=== PATIENT | male | born 1980 | race Caucasian/White ===

== ENCOUNTER 2017-10-10 14:26 | Inpatient (IN) | payer OTHER ==
[~2017-10-10] VITALS: Ht 177.8 cm; Wt 81.6 kg
[2017-10-10 15:00] VITALS: BP 124/68
--- NOTE | 2017-10-10 15:00 | NUR ---
Pre-admission Pre-admission assessment performed in the intake department of [facility]. Pt is oriented x4 but drowsy and ambulatory with a steady gait. He appears intoxicated and answers questions appropriately with slurred speech. His eyes are red and he reports that he did not sleep last night. Vital signs: B/P 124/68, HR 78, RR 16, O2 sat 98%, T 98.1, pain 0/10. He reports that had 2 years and 7 months sober but relapsed 3 months ago after "major oral surgery". He has been using Xanax, Valium, [place], Morphine ER, Roxycodone, cocaine, and heroin. Pt was originally prescribed Valium and Clinton after oral surgery. Soon after he began using Xanax, Morphine ER, and Roxycodone. For the past 2 nights he used Heroin and Cocaine. Pt is stable and admission is to continue on the [facility].
[2017-10-10] MEDS ORDERED: DICYCLOMINE HCL 20 MG TABLET PO PRN (15:45)
[2017-10-10] MEDS ORDERED: DIAZEPAM 5 MG TABLET PO PRN (15:45)
[2017-10-10] MEDS ORDERED: THIAMINE HCL 200 MG/2 ML VIAL IM ONE (15:45)
[2017-10-10] MEDS ORDERED: ACETAMINOPHEN 325 MG TABLET PO PRN (15:45)
[2017-10-10] MEDS ORDERED: DIAZEPAM 10 MG TABLET PO PRN ×2 (15:45)
[2017-10-10] MEDS ORDERED: LORAZEPAM 2 MG/1 ML VIAL IM PRN (15:45)
[2017-10-10] MEDS ORDERED: ONDANSETRON ODT 4 MG TAB.RAPDIS SL PRN (15:45)
[2017-10-10] MEDS ORDERED: MAGNESIUM HYDROXIDE 30 ML LIQUID UDC PO PRN (15:45)
[2017-10-10] MEDS ORDERED: MAG HYDROX/AL HYDROX/SIMETH 30 ML LIQUID UDC PO PRN (15:45)
[2017-10-10] MEDS ORDERED: CLONIDINE HCL 0.1 MG TABLET PO PRN (15:45)
[2017-10-10] MEDS ORDERED: ONDANSETRON 4 MG/2 ML VIAL IM PRN (15:45)
[2017-10-10] MEDS ORDERED: MIRALAX 17 GM POWD.PACK PO PRN (15:45)
[2017-10-10] MEDS ORDERED: HYDROXYZINE PAMOATE 25 MG CAPSULE PO PRN (15:45)
[2017-10-10] MEDS ORDERED: BUPRENORPHINE HCL 2 MG TAB.SUBL SL PRN (15:45)
[2017-10-10] MEDS ORDERED: LOPERAMIDE HCL 2 MG CAPSULE PO PRN ×2 (15:45)
[2017-10-10 16:00] VITALS: BP 99/60
[2017-10-10 16:38] LABS: *AMPHETAMINE, URINE NEGATIVE (NEGATIVE); *BARBITURATE, URINE NEGATIVE (NEGATIVE); *CANNABINOID, URINE NEGATIVE (NEGATIVE); *COCCAINE, URINE POSITIVE (NEGATIVE); *OPIATE, URINE POSITIVE (NEGATIVE); *PHENCYCLIDINE SCREEN,URINE NEGATIVE (NEGATIVE)
[2017-10-10 17:06] LABS: BASOPHILS % (AUTO) 0.2 % (0.0-2.0); EOSINOPHILS % (AUTO) 0.2 % (0.0-7.0); HEMATOCRIT 36.7 % (36.7-47.1); HEMOGLOBIN 12.4 g/dL (12.5-16.3); LYMPHOCYTES # (AUTO) 0.8 K/uL (20.0-40.0); LYMPHOCYTES % (AUTO) 8.6 % (20.5-51.5); MEAN CORPUSCULAR HEMOGLOBIN 31.4 uug (23.8-33.4); MEAN CORPUSCULAR HGB CONC 34 g/dL (32.5-36.3); MEAN CORPUSCULAR VOLUME 92.4 fL (73.0-96.2); MONOCYTES # (AUTO) 0.5 K/uL (2.0-10.0); MONOCYTES % (AUTO) 5.7 % (0.0-11.0); NEUTROPHILS # (AUTO) 7.7 K/uL (1.8-8.9); NEUTROPHILS % (AUTO) 85.3 % (38.5-71.5); PLATELET COUNT (AUTO) 160 K/uL (152-348); RED BLOOD CELL COUNT(AUTO) 3.97 MIL/uL (4.06-5.63); WHITE BLOOD COUNT (AUTO) 9.1 K/uL (3.6-10.2)
[2017-10-10 17:07] LABS: ETHANOL < 3 MG/DL (0-0)
[2017-10-10 17:10] LABS: ALANINE AMINOTRANSFERASE 58 U/L (16-63); ALKALINE PHOSPHATASE 54 U/L (50-136); ASPARTATE AMINOTRANSFERASE 20 U/L (15-37); BILIRUBIN,TOTAL 0.5 mg/dL (0.2-1.0); CARBON DIOXIDE 30 mmol/L (21-32); CHLORIDE 105 mmol/L (98-107); CREATININE 0.9 mg/dL (0.6-1.3); GLUCOSE 105 mg/dL (74-106); POTASSIUM 4.1 mmol/L (3.5-5.1); TOTAL PROTEIN, SERUM 6.6 g/dL (6.4-8.2); UREA NITROGEN, BLOOD 23 mg/dL (7-18)
--- NOTE | 2017-10-10 17:50 | NUR ---
Admission note Pt is a 37 year old male arrived to [facility] at 1625 to be admitted for medically supervised withdrawals from Opiates and Benzos, pt also used cocaine. Pt appeared to be moderately intoxicated from Xanax, stated that he took 3mg this morning. Pt stated that he has not slept for the past day and a half he has been using Heroin 2 grams for the past 2 nights and cocaine for the past 2 nights. Pt is able to communicate effectively with moderate difficulties, pt was nodding and had difficulty keeping his eyes open during the assessment. He was able to answer all the questions effectively. Pt stated that he has experienced a seizure once due to Xanax withdrawal and he also states that he has no PMH but does have issues with his teeth and had to do surgery on his teeth which is how he relapsed. Pt states that he smokes a pack of cigarettes daily. CIWA and COWS were deferred due to pt being moderately intoxicated during the assessment and not experiencing any symptoms. Patient appears calm but noted to be worried and depressed. Pt states that he lives with his girlfriend in an apartment, pt currently unemployed he is 180lb and 510. Pt is A&Ox4 Vitals are as followed BP B/P 124/68, HR 78, RR 16, O2 sat 98%, T 98.1, pain 0/10. Pt states his withdrawal symptoms include feeling depressed, having anxiety, constantly nauseated and at times vomiting, tremors, chills, sweats emotional volatility, and [place]. Pt stated that he attended other facilities in the past including [facility] which he attended from April 16 2012 to August 03 2013 and [facility] from April/2010 to 2010. Substance use are as followed: Pt stated that he has been to multiple treatment centers in the past over 30 of them but he only remembers the names of the last 2 which was [facility] which he attended for 7 months but does not recall the [facility] and [facility] where he was on a maintenance and does not recall the dates on those at the moment pt states that he has not slept for the past few days due to cocaine and heroin and is not able to think straight at the moment. 1. Xanax- Pt refused to answer at what age he started using Xanax stating thats none of your concern For the past 3 months he has been taking around 8-10mg by mouth. He last used it today in the AM stating he took 3mg. 2. Heroin- Pt refused to answer at what age he started using heroin stating thats none of your concern he has been using 2grams IV for the past 2 days, stating that he last shot up 2 grams last night. 3. Cocaine- Pt refused to answer at what age he started using Cocaine stating thats none of your concern he has been using 1gram snorting it for the past 2 days, stating that he last snorted about 2 grams last night. 4. Roxicodone/Morphine- pt stated that he has been taking Roxicodone 40-50mg a day for the past 3 months last used 50mg 3 days ago.He stated that he took morphine ER 60-75mg a day for the past 3 months and he last took 60mg 3 days ago 5. [place]/Valium- Pt stated that this relapse occurred due to these medications that he got prescribed by his dentist after a major teeth surgery, he was prescribed a month worth of Valium 5mg and [place] 5/325mg. he stated that he last took the meds last week and it created withdrawals which got his to taking the rest of the drugs. When asked why he uses drugs he stated "it takes away the pain and anger and the stress that I have to deal with in my life" when asked why he want to get sober he stated "Because I want to be better and I want to fix my relationship with my girlfriend and my parents". Patients longest sobriety lasted 2 years and a 7 months from October 2014 to around July 2017. When asked how many times he tried to get sober? pt stated "I have been in treatment centers all my life ever since I was like 17/18 years old, I have been trying all this time and I keep failing but I want to make this one different". What will be different this time? "I will stick to it, no more prescriptions no matter what surgery I get, Im done with this because these doctors just dont care and prescribe stuff that is addicting, but Im done man no more I will take control of my life". Educated patient about plan of care including detox, group therapy, individual therapy, and discharge planning. Encouraged patient to be open and honest and verbalized any needs. Encouraged patient to drink plenty of water to help facilitate detox process. Will continue to monitor
--- NOTE | 2017-10-10 19:27 | NUR ---
End Of Shift Report given to weight shifter nurse. Pt admitted today for Opiate and Benzo withdrawals, assessment completed, all paperwork signed, information provided to MD, All admitting orders placed. Pt ate his meals, laid in bed and watched TV, Pts CIWA and COWS was differed due to him being intoxicated, vitals WNL, I&O inputted. Pt encouraged to drink plenty of fluids in order to help the detox process. Pt will start his taper tomorrow in the AM. No PRN medications administered, all safety measures in place bed in lowest position, call light within reach, endorsement given to weight shifter nurse.
--- NOTE | 2017-10-10 19:28 | NUR ---
Start of shift note Received report from day shift nurse. Pt is a 37 yo male, A+Ox4, presenting to [facility] for Benzo/Opiate/Cocaine withdrawal. Pt noted to be anxious, agitated, and restless. Pt has HX of Seizure which will be monitored during shift. Pt is on 5 day Valium and 5 day Subutex tapers to start tomorrow. Respirations even and unlabored. Will continue to monitor.
[2017-10-10 20:09] VITALS: BP 133/79
--- NOTE | 2017-10-10 20:09 | NUR ---
COWS and CIWA Assessment COWS: 9 and CIWA: 8. Pt noted with pulse 64, chills, sweat, restlessness, stuffy nose, stomach cramps, yawning, anxiety, and agitation. Respirations even and unlabored. Will continue to monitor.
[2017-10-11 00:20] VITALS: BP 125/79
--- NOTE | 2017-10-11 00:20 | NUR ---
COWS and CIWA Assessment COWS: 8 and CIWA: 10. Pt noted with pulse 67, sweat, chills, anxiety, agitation, yawning, stomach cramps, stuffy nose, and restlessness. Respirations even and unlabored. Will continue to monitor.
--- NOTE | 2017-10-11 00:28 | NUR ---
PRN Valium 10mg Pt c/o anxiety and noted with CIWA: 10. PRN [id number] given and tolerated well. Will reassess within 1 HR. Will continue to monitor.
--- NOTE | 2017-10-11 01:20 | NUR ---
PRN Valium 10mg Reassessment Medication effective. Pt expresses reduction of anxiety. CIWA: 8. No s/s of ASE noted at this time. Respirations even and unlabored. Will continue to monitor. Addendum: 10/11/17 at 0334 by ARIANNA SHELTON LVN Pt noted with sweat on brow, agitation, and anxiety.
--- NOTE | 2017-10-11 04:47 | NUR ---
V/S refused, COWS and CIWA assessment deferred for sleep. Respirations even and unlabored. Will continue to monitor.
--- NOTE | 2017-10-11 07:00 | NUR ---
End of shift note Pt was continuously noted with anxiety, agitation, restlessness, and sweat on brow. Pt remained in room for majority of shift except to get food from kitchen, to go smoke on smoking patio, and to interact with other patients in recreational room. Pt remained cooperative and compliant with all aspects of treatment. Pt was given PRN Valium 10mg @0028. Pt is on 5 day Valium and 5 day Subutex tapers to start today. Pt slept for a total of 5 HRS. Last COWS: 8 @0020 and Last CIWA: 8 @0120. Respirations even and unlabored. Will endorse to day shift nurse.
--- NOTE | 2017-10-11 07:38 | NUR ---
START OF SHIFT Pt is a 37 yr old male, admitted on 10/10/17 for Benzo/Opiate withdrawal and is to start on 5 day Valium and 5 day Subutex taper as ordered. Received report from shift leader. Pt received Valium 10mg PRN during the night for s/s of w/d. Medication was effective. Pt slept for 5 hrs. Last COWS score was 8 and CIWA score was 8. Pt remains in bed sleeping with respirations even and unlabored. Skin is intact, warm and moist to touch. Pt is on fall and seizure precautions. Call light is within reach. Will continue to monitor.
[2017-10-11 08:09] VITALS: BP 130/68
[2017-10-11] MEDS ORDERED: 5 DAY TAPER BUPRENORPHINE -SERENITY PROTOCOL SL PRN (09:00)
[2017-10-11] MEDS ORDERED: TUBERCULIN,PURIF.PROT.DERIV. 5 TU/0.1 ML TEST ID ONE (09:00)
[2017-10-11] MEDS ORDERED: 5 DAY TAPER VALIUM-SERENITY PROTOCOL PO PRN (09:00)
[2017-10-11] MEDS: MULTIVITAMINS,THERAPEUTIC TABLET PO SCH (09:50)
[2017-10-11] MEDS: FOLIC ACID 1 MG TABLET PO SCH (09:50)
[2017-10-11] MEDS: BUPRENORPHINE HCL 2 MG TAB.SUBL SL SCH ×4 (09:51→23:48)
[2017-10-11] MEDS: DIAZEPAM 10 MG TABLET PO SCH ×4 (09:51→23:48)
[2017-10-11] MEDS: THIAMINE HCL 100 MG TABLET PO SCH (09:51)
--- NOTE | 2017-10-11 09:56 | NUR ---
COWS SCORE 13, CIWA SCORE 12 Pt is c/o anxiety, agitation, chills, sweats, joint aches, loss of appetite, and diarrhea x1. Pt is noted yawning more than once and fine tremors are felt on BUE. COWS score was 13 and CIWA score was 12. Pt was given Subutex 4mg SL and Valium 10mg PO as scheduled at 0900. Medication was mayra well. Encouraged increase fluid intake. Will continue to monitor.
[2017-10-11 12:00] VITALS: BP 130/76
--- NOTE | 2017-10-11 12:00 | NUR ---
COWS SCORE 10, CIWA SCORE 10 Pt is c/o anxiety, chills, sweats, loss of appetite, and abdominal cramping Pt is noted yawning more than once. COWS score was 10 and CIWA score was 10. Encouraged increase fluid intake. Will continue to monitor.
[2017-10-11 16:00] VITALS: BP 127/75
--- NOTE | 2017-10-11 19:10 | NUR ---
END OF SHIFT Pt is a 37 yr old male, AA&Ox4. Pt was admitted on 10/10/17 for Benzo/Opiate withdrawal and is on 5 day Subutex and 5 day Valium taper as ordered. Medication mayra well. Pt has been cooperative with medication regimen and plan of care. He was observed attending group therapy during the day. Pt was c/o anxiety, agitation, chills, sweats, abdominal cramping, muscle aching, and diarrhea x1. Pt was observed with stuffy nose and yawning more than once. No PRNs were given during the day. Valium 10mg and Subutex 4mg as scheduled during the day was effective for s/s of w/d. Last COWS score was 8 and CIWA score was 9. Pt was encouraged increase fluid intake. Safety precautions observed. Endorsed to photoengraving proofer nurse to continue with care.
--- NOTE | 2017-10-11 19:11 | NUR ---
Start of shift note Received report from day shift nurse. Pt is a 37 yo male, A+Ox4, presenting to [facility] for medically supervised Benzo and Opiate withdrawal. Pt has also been using Cocaine. Pt noted to be anxious, agitated, and restless. Pt has HX of seizure which will be monitored during shift. Pt is on 5 day Valium, and 5 day Subutex tapers, tolerated well. Respirations even and unlabored. Will continue to monitor.
[2017-10-11 20:22] VITALS: BP 114/77
--- NOTE | 2017-10-11 20:28 | NUR ---
COWS and CIWA Assessment COWS: 9 and CIWA: 9. Pt noted with pulse 61, flushed face, enlarged pupils, restlessness, stuffy nose, stomach cramps, fine tremors, yawning, anxiety, agitation, and sweat on brow. Respirations even and unlabored. Will continue to monitor.
[2017-10-12 00:57] VITALS: BP 129/85
--- NOTE | 2017-10-12 00:57 | NUR ---
COWS and CIWA Assessment COWS: 8 and CIWA: 8. Pt noted with sweat on brow, anxiety, agitation, fine tremors, yawning, stomach cramps, restless, enlarged pupils, flushed face, stuffy nose, and pulse 68. Respirations even and unlabored. Will continue to monitor.
--- NOTE | 2017-10-12 04:06 | NUR ---
V/S refused, COWS and CIWA Assessment deferred for sleep. Respirations even and unlabored. Will continue to monitor.
--- NOTE | 2017-10-12 07:00 | NUR ---
End of shift note Pt was continuously noted with restlessness, anxiety, and agitation. Pt remained in room for majority od shift except to go smoke on smoking patio, to get food from kitchen, and to interact with other patients in recreational room. Pt was not given any PRN medications during shift. Pt is on 5 day Subutex and 5 day Valium tapers, tolerated well. Pt slept for a total of 5 HRS. Last COWS: 8 and Last CIWA: 8 @0000. Respirations even and unlabored. Will endorse to day shift nurse.
--- NOTE | 2017-10-12 07:15 | NUR ---
Start of Shift Notes: Received patient in his room. Awake, alert and verbally responsive. Oriented x 4. Denies S/I or H/I noted. No AV hallucinations. Patient appears disheveled, and unkempt. Room is messy. Garbage noted around the room. Encouraged maintenance of personal hygiene and space. Patient is a 37 year old male admitted for BZO and opiate withdrawal who was placed on a 5-day Valium and 5-day Subutex taper as ordered. No adverse reactions noted. Edcuated patient on his current plan of care for the day and his medication regimen. Encouraged oral fluid intake and encouraged group participation to learn new skills to prevent relapse. Per night report, last COWS 12. No PRNs given. Slept for 5 hours. Will continue to monitor closely.
[2017-10-12 08:00] VITALS: BP 105/76
[2017-10-12] MEDS: FOLIC ACID 1 MG TABLET PO SCH (08:28)
[2017-10-12] MEDS: MULTIVITAMINS,THERAPEUTIC TABLET PO SCH (08:28)
[2017-10-12] MEDS: DIAZEPAM 10 MG TABLET PO SCH ×3 (08:28→22:51)
[2017-10-12] MEDS: THIAMINE HCL 100 MG TABLET PO SCH (08:28)
[2017-10-12] MEDS: BUPRENORPHINE HCL 2 MG TAB.SUBL SL SCH ×3 (08:28→22:51)
--- NOTE | 2017-10-12 08:30 | NUR ---
COWS/CIWA Assessment: COWS 16/CIWA 14, patient presented with facial flushing, sweating on brow/face, intermittent generalized perspiration at rest, pupil dilation, bone/joint aches, myalgia, nasal stuffiness, abdominal cramping, yawning, irritability, anxiety, agitation, gross tremors, and diff. concentrating. Medicated patient as ordered with Valium and Subutex per taper dosing.
[2017-10-12 12:00] VITALS: BP 117/71
--- NOTE | 2017-10-12 12:19 | NUR ---
COWS/CIWA Assessment: COWS 15/CIWA 12, patient is alert and oriented x 4. Denies S/I or H/I. No AV hallucinations noted. Patient continues to present with gross tremors, myalgia, restlessness, malaise, fatigue, intermittent perspiration, and generalized discomfort. Will continue with current taper.
[2017-10-12 13:07] LABS: HEPATITIS B SURFACE AG Negative (Negative)
[2017-10-12 16:00] VITALS: BP 122/68
--- NOTE | 2017-10-12 16:10 | NUR ---
COWS/CIWA Assessment: COWS 12/CIWA 12, patient continues to present with gross tremors, anxiety/agitation, irritability, generalized discomfort, restlessness, chills and hot flashes. Will continue with taper meds as ordered.
--- NOTE | 2017-10-12 19:01 | NUR ---
End of Shift Notes: Patient continues to be on 5-day Subutex and 5-day Valium taper as ordered. No adverse reactions noted. VS monitored closely. No significant abnormalities noted. Withdrawal symptoms were closely monitored. Initial COWS 16, CIWA 14, patient presented with flushed face, intermittent diaphoresis, pupil dilation, bone/joint aches, myalgia, nasal stuffiness, abdominal cramping, yawning, irritability, fatifue, malaise, anxiety, agitation, gorss tremors and difficulty concentrating. Last COWS 12/CIWA 12. Patient verbalizes that Subutex and Valium has been effective in reducing his withdrawal symptoms. He was unable to participate in group and activities due to his withdrawal symptoms. Self isolates at times. Appetite good. All needs met and attended. Will continue to monitor closely.
--- NOTE | 2017-10-12 19:14 | NUR ---
Start of shift note Received report from day shift nurse. Pt is a 37 yo male, A+Ox4, presenting to [facility] for medically supervised withdrawal from Benzos and Opiates. Pt noted to be restless, anxious, and agitated. Pt has HX of seizure and tooth SX which will be monitored during shift. Pt is on 5 day Valium and 5 day Subutex tapers, tolerated well. Respirations even and unlabored. Will continue to monitor.
[2017-10-12 20:11] VITALS: BP 140/79
--- NOTE | 2017-10-12 20:11 | NUR ---
COWS and CIWA Assessment COWS: 10 and CIWA: 10. Pt noted with flushed face, sweat on brow, restlessness, enlarged pupils, stuffy nose, fine tremors, yawning, anxiety, and agitation. Respirations even and unlabored. Will continue to monitor.
[2017-10-12] MEDS: diphenhydrAMINE 50 MG CAPSULE PO PRN (23:00)
[2017-10-12] MEDS: IBUPROFEN 600 MG TABLET PO PRN (23:00)
--- NOTE | 2017-10-12 23:00 | NUR ---
PRN Motrin and Benadryl Pt c/o toothache 08/12 and inability to sleep and requested for PRN Motrin and Benadryl. Medications given and tolerated well. Respirations even and unlabored. Will reassess within 1 HR. Will continue to monitor.
--- NOTE | 2017-10-12 23:49 | NUR ---
PRN Motrin and Benadryl Reassessment Medications effective. Pt expresses reduction in toothache to 2/10 and is resting well in bed. No s/s of ASE noted at this time. Respirations even and unlabored. Will continue to monitor.
--- NOTE | 2017-10-13 00:50 | NUR ---
V/S refused, COWS and CIWA assessment deferred for sleep. Respirations even and unlabored. Will continue to monitor.
--- NOTE | 2017-10-13 04:19 | NUR ---
V/S refused, COWS and CIWA assessment deferred for sleep. Respirations even and unlabored. Will continue to monitor.
--- NOTE | 2017-10-13 07:00 | NUR ---
End of shift note Pt was continuously noted with restlessness, anxiety, and agitation. Pt remained in room for majority of shift except to get food from kitchen, to go smoke on smoking patio, and to interact with other patients in recreational room. Pt was given PRN Motrin and Benadryl @2300. Pt is on 5 day Valium and 5 day Subutex tapers, tolerated well. Pt slept for a total of 7 HRS. Last COWS: 10 and Last CIWA: 10 @1999. Respirations even and unlabored. Will endorse to day shift nurse.
--- NOTE | 2017-10-13 07:56 | NUR ---
Start of shift Report received from fast food shift lead nurse. Per fast food shift lead nurse last COWS 10 at 2000 and last CIWA 10 was at 2000. Upon start of shift pt was in bed with eyes closed. Araousable to voice and light touch. Pt appears disheveled, unshaven, odorous and flushed. Pts room has wrappers and empty bottles all over tables and dresser. Pts expression is anxious and he has poor eye contact. During assessment, pt is AOx3. Lung sounds clear bilaterally. Radial pulse is regular and non-bounding. Abdomen soft and non-tender. Pt denies c/o N/V/D. Skin is warm and dry. Pt denies pain at this time. Pt is currently on 5 day Valium/5 day Subutex taper to manage withdrawal symptoms. Taper was started on 10/11/17, today is day 3 of taper. Bed in lowest position. Side rails up x2. Call light functioning and within reach. All needs attended and met. Will continue to monitor.
[2017-10-13 08:00] VITALS: BP 100/64
--- NOTE | 2017-10-13 08:16 | NUR ---
COWS 12/ CIWA 12- Pt presents with moderate anxiety, sweats/chills, fine tremors, fidgety and restlessness.
[2017-10-13] MEDS ORDERED: BUPRENORPHINE HCL 2 MG TAB.SUBL SL SCH (09:00)
[2017-10-13] MEDS: FOLIC ACID 1 MG TABLET PO SCH (09:11)
[2017-10-13] MEDS: THIAMINE HCL 100 MG TABLET PO SCH (09:11)
[2017-10-13] MEDS: MULTIVITAMINS,THERAPEUTIC TABLET PO SCH (09:11)
[2017-10-13] MEDS: DIAZEPAM 5 MG TABLET PO SCH ×4 (09:11→20:46)
[2017-10-13 12:00] VITALS: BP 124/74
--- NOTE | 2017-10-13 12:33 | NUR ---
COWS 14/ CIWA 14- Pt C/O moderate anxiety, sweats/chills, fine tremors, head fullness, stuffy nose, fidgety and restlessness. Pt participated in group therapy to help ID + coping skills. VSS.
[2017-10-13] MEDS: BUPRENORPHINE HCL 2 MG TAB.SUBL SL SCH ×2 (14:24→20:46)
[2017-10-13 16:00] VITALS: BP 120/84
--- NOTE | 2017-10-13 16:23 | NUR ---
COWS 14/ CIWA 14- Pt continues with C/O moderate anxiety, fine tremors, sweats/chills, head fullness, stuffy nose, fidgety and restlessness. VSS. He is tolerating taper well.
[2017-10-13] MEDS: IBUPROFEN 600 MG TABLET PO PRN (17:45)
--- NOTE | 2017-10-13 17:45 | NUR ---
PRN IBUPROFEN 600 MG PO FOR TOOTH PAIN#8/10
--- NOTE | 2017-10-13 18:29 | NUR ---
End of shift Pt is 37 y/o male admitted for medically supervised withdrawal of Benzo and Opiates. Last COWS 14 at 1600 and last CIWA 14 was at 1600. Pt is currently on 5 day Valium/5 day Subutex taper to manage withdrawal symptoms and tolerating well. Taper was started on 10/11/17, today is day 3 of taper. PRN given Ibuprofen for tooth pain. Pt remains disheveled, unshaven, odorous and flushed. Pts expression is anxious and he has poor eye contact. He remains withdrawn and isolative. Pt appetite is fair. Pt encouraged to participate in group activities, socialize with others and identify positive coping skills to maintain sobriety. Pt did attend both group sessions today. PO fluids 1460ml, voids x3, no BM. FULL CODE AND ALLERGY TO CATS. Bed in lowest position. Side rails up x2. Call light functioning and within reach. All needs attended and met. Will continue to monitor. Endorsed to PM shift.
--- NOTE | 2017-10-13 18:43 | NUR ---
REASSESS IBUPROFEN- PT REPORTS TOOTH PAIN GONE, 0/10. MEDICATION EFFECTIVE.
--- NOTE | 2017-10-13 19:30 | NUR ---
Start of Shift Endorsement received from day nurse. Pt was admitted 10/10/17 for medically managed withdrawal/detox from Benzodiazapines and Opiates. Pt is listed as a full code with NKA's and on a regular diet. Pt assessed in room appearing depressed/anxious appeareance, slow/deliberate speech, eye contact avoidant, thoughts appear loose, with c/o anxiety and restlessness/agitation, hot and cold sweats/chills, lacrimation, restless legs at night. C/o insomnia at night. Full safety measures in place with bed locked and in lowest position, call negrete within reach and frequent rounding.
[2017-10-13 20:00] VITALS: BP 123/78
--- NOTE | 2017-10-13 20:00 | NUR ---
Evening Rounds COWS/CIWA score 14/14, aeb anxiety and agitation/restlessness, fatigue/malaise, anhedonia, difficulty sleeping, lacrimation
[2017-10-13] MEDS: diphenhydrAMINE 50 MG CAPSULE PO PRN (20:46)
--- NOTE | 2017-10-13 20:46 | NUR ---
PRN Med Benedryl 50mg PO given for insomnia. Will continue to monitor, and reassess in 1 hour
--- NOTE | 2017-10-13 21:46 | NUR ---
PRN Reassessment Benedryl 50mg PO given for insomnia 1 hour prior. At present pt is resting with eyes closed, RR 16, even and nonlabored. Med effective.
[2017-10-14] VITALS: BP 114/71
--- NOTE | 2017-10-14 | NUR ---
VS's obtained and stable. COWS/CIWA deferred r/t pt somnalance. Will continue to monitor and promptly attend to all s/sx's w/d or distress
[2017-10-14 04:00] VITALS: BP 114/71
--- NOTE | 2017-10-14 04:00 | NUR ---
0400 Rounds VS's obtained and stable. COWS/CIWA deferred r/t pt somnalance. Will continue to monitor and promptly attend to all s/sx's w/d or distress
--- NOTE | 2017-10-14 07:14 | NUR ---
End of Shift Endorsement given to day nurse. Pt was admitted 10/10/17 for medically managed withdrawal/detox from Benzodiazapines and Opiates. Pt is listed as a full code with NKA's and on a regular diet, starting day 4 of a 5 day Subutex/Valium taper. Pt presented with flat affect with depressed and anxious appearance. Thoughts loose with slow speech. Evening w/d s/sx's aeb anxiety, restlessness, anhedonia, depression, fatigue/malaise, difficulty sleeping. Last COWS 14, CIWA 14. Pt slept for 7 hours with 855 mls intake and 1 void. Full safety measures remain in place with bed locked and in lowest position, siderails up x 2 and frequent rounding.
--- NOTE | 2017-10-14 07:40 | NUR ---
Start of shift Pt is 37 y/o male admitted for medically supervised withdrawal of Benzo and Opiates. Last COWS 14 at 1600 and last CIWA 14 at 2000. Pt is currently on 5 day Valium/5 day Subutex taper to manage withdrawal symptoms and tolerating well. Taper was started on 10/11/17, today is day 4 of taper. Pt remains disheveled, unshaven, odorous and flushed. Pts expression is anxious, flat affect, depressed mood and he has poor eye contact. Pt slept 7 hours. Pt encouraged to participate in group activities, socialize with others and identify positive coping skills to maintain sobriety. FULL CODE AND ALLERGY TO CATS. Bed in lowest position. Side rails up x2. Call light functioning and within reach. All needs attended and met. Will continue to monitor.
[2017-10-14 08:03] VITALS: BP 118/72
--- NOTE | 2017-10-14 08:09 | NUR ---
COWS 14/CIWA 14- PT PRESENTS WITH SWEATS/MOIST SKIN, RESTLESSNESS, MILD BODY ACHES, NASAL STUFFY, FINE TREMORS AND MODERATE ANXIETY. PT PACING AROUND ROOM AND WENT OUT TO [facility] TO SMOKE.
[2017-10-14] MEDS: THIAMINE HCL 100 MG TABLET PO SCH (08:25)
[2017-10-14] MEDS: BUPRENORPHINE HCL 2 MG TAB.SUBL SL SCH ×3 (08:25→20:51)
[2017-10-14] MEDS: MULTIVITAMINS,THERAPEUTIC TABLET PO SCH (08:25)
[2017-10-14] MEDS: FOLIC ACID 1 MG TABLET PO SCH (08:25)
[2017-10-14] MEDS: DIAZEPAM 5 MG TABLET PO SCH ×3 (08:25→20:52)
[2017-10-14 12:00] VITALS: BP 138/84
[2017-10-14] MEDS: IBUPROFEN 600 MG TABLET PO PRN ×2 (12:01→20:51)
--- NOTE | 2017-10-14 12:01 | NUR ---
PRN IBUPROFEN 600 MG PO FOR TOOTH PAIN #7/10
--- NOTE | 2017-10-14 12:02 | NUR ---
COWS 14/ALBERTINAWA 14- PT PRESENTS WITH DIFFICULTY CONCENTRATING, MOIST SKIN, RESTLESSNESS, MILD BODY ACHES, TOOTH PAIN, NASAL STUFFY, FINE TREMORS AND MODERATE ANXIETY. PT HAS DIFFICULTY SITTING STILL AND PACES AROUND UNIT. HE HAS FREQUENT STOPS TO [facility] FOR SMOKING.
--- NOTE | 2017-10-14 12:53 | NUR ---
REASSESS IBUPROFEN- PT REPORTS TOOTH PAIN NOW 0/10. MEDICATION EFFECTIVE. HE WAS ABLE TO EAT LUNCH.
--- NOTE | 2017-10-14 13:20 | NUR ---
Client was prompted to attend twice daily group therapy sessions.
[2017-10-14 16:00] VITALS: BP 128/64
--- NOTE | 2017-10-14 16:10 | NUR ---
COWS 14/CIWA 14- PT HAS DIFFICULTY SITTING STILL AND PACES AROUND UNIT.PT C/O DIFFICULTY CONCENTRATING, HE HAS VISABLE MOIST SKIN, RESTLESS LEGS, MILD BODY ACHES, NASAL STUFFY, FINE TREMORS AND MODERATE ANXIETY.
--- NOTE | 2017-10-14 18:33 | NUR ---
End of shift Pt is 37 y/o male admitted for medically supervised withdrawal of Benzo and Opiates. Last COWS 14 and last CIWA 14 at 1600. Pt is currently on 5 day Valium/5 day Subutex taper to manage withdrawal symptoms and tolerating well, today is day 4 of taper. Pts expression is anxious, flat affect, depressed mood and he has poor eye contact. C/O nasal stuffy, difficulty concentrating, malaise and fine tremors. PRN given today; Ibuprofen. Pt encouraged to participate in group activities, socialize with others and identify positive coping skills to maintain sobriety. He attended both group therapy sessions today. PO fluids 2500ml, voids x6, no BM. Bed in lowest position. Side rails up x2. Call light functioning and within reach. All needs attended and met. Will continue to monitor. Endorsed to PM shift.
--- NOTE | 2017-10-14 19:30 | NUR ---
Start of Shift Endorsement received from day nurse.Pt admitted 10/10/17 for medically managed withdrawal from Opiates and Benzodiazapines. Pt is listed as a full code with NKAs and on a regular diet. Pt is on day 4 of a 5 day Valium/Subutex taper. Pt presents as depressed, worried looking with flat affect. Thoughts are racing/loose. Pt with c/o tooth pain, 5/10, diaphoresis, tremors, anhedonia, fatigue. Last reported COWS/CIWA 14 and 14. Pt oriented x 4, denies any SI/HI. Full safety measures remain in place. Will continue to monitor for shift, promptly attending to all s/sxs distress or w/d
[2017-10-14 20:00] VITALS: BP 144/81
--- NOTE | 2017-10-14 20:00 | NUR ---
Evening Rounds VS's obtained and stable, COWS and CIWA 14 and 14, aeb fatigue and malaise, lacrimation, anxiety and restlessness, tremors, difficulty concentrating and sleeping, anhedonia, arthralgias, depression, diaphoresis, and nasal congestion.
[2017-10-14] MEDS: diphenhydrAMINE 50 MG CAPSULE PO PRN (20:52)
--- NOTE | 2017-10-14 20:52 | NUR ---
PRN Meds Benedryl 50mg PO for insomnia and Motrin 600mg PO for tooth pain 5/10 given. Will continue to monitor, reassessing in 1 hour, and promptly attend to all s/sx's w/d or distress noted.
--- NOTE | 2017-10-14 21:52 | NUR ---
PRN Reassessment Benedryl 50mg PO for insomnia and Motrin 600mg PO for tooth pain 5/10 given 1 hour prior. At present pt reports feeling drowsy and more relaxed, tooth pain decreased to 2/10. Meds effective.
[2017-10-15] VITALS: BP 143/78
--- NOTE | 2017-10-15 | NUR ---
Midnight Rounds VS's obtained and stable. COWS/CIWA deferred r/t pt somnalance. Will continue to monitor and promptly attend to all s/sx's w/d or distress
[2017-10-15 04:00] VITALS: BP 118/77
--- NOTE | 2017-10-15 04:00 | NUR ---
0400 Rounds VS's obtained and stable. COWS/CIWA deferred r/t pt somnalance. Will continue to monitor and promptly attend to all s/sx's w/d or distress.
--- NOTE | 2017-10-15 07:17 | NUR ---
End of Shift Endorsement given to day nurse.Pt admitted 10/10/17 for medically managed withdrawal from Opiates and Benzodiazapines. Pt is listed as a full code with NKAs and on a regular diet. Pt is on day 5 of a 5 day Valium/Subutex taper. Shift uneventful for night. Pt remains depressed with flat affect , loose thoughts, disheveled and unshaven. Last COWS 14, CIWA 14, with Benedryl and Motrin being only 2 PRNS for shift. Pt slept for 6 hours, with 1300 mls intake and 2 voids. Full safety measure remain in place, with bed locked and in lowest position, siderails up x 2, call negrete within reach and frequent rounding.
--- NOTE | 2017-10-15 07:31 | NUR ---
START OF SHIFT Pt is a 37 yr old male, admitted on 10/10/17 for Benzo/Opiate withdrawal and is to start on 5 day Valium and 5 day Subutex taper as ordered. Received report from maintenance technician 3rd shift. Pt received Motrin PRN and Benadryl PRN during the night. Medication was effective. Pt slept for 7 hrs. Last COWS score was 14 and CIWA score was 14. Pt remains in bed sleeping with respirations even and unlabored. Skin is intact, warm and moist to touch. Pt's room is noted disheveled with multiple open food wrappers on bedside table and on the floor. Pt is on fall and seizure precautions. Call light is within reach. Will continue to monitor.
[2017-10-15 07:43] LABS: BILIRUBIN,TOTAL 0.3 mg/dL (0.2-1.0); CREATININE 0.8 mg/dL (0.6-1.3); POTASSIUM 4.3 mmol/L (3.5-5.1); TOTAL PROTEIN, SERUM 5.9 g/dL (6.4-8.2)
[2017-10-15 08:00] VITALS: BP 122/78
[2017-10-15] MEDS ORDERED: BUPRENORPHINE HCL 2 MG TAB.SUBL SL SCH (09:00)
[2017-10-15] MEDS ORDERED: TRAZODONE 50 MG TABLET PO PRN (09:45)
[2017-10-15] MEDS: FOLIC ACID 1 MG TABLET PO SCH (09:48)
[2017-10-15] MEDS: MULTIVITAMINS,THERAPEUTIC TABLET PO SCH (09:48)
[2017-10-15] MEDS: DIAZEPAM 5 MG TABLET PO SCH ×2 (09:49→21:40)
[2017-10-15] MEDS: THIAMINE HCL 100 MG TABLET PO SCH (09:49)
--- NOTE | 2017-10-15 10:00 | NUR ---
COWS 10, CIWA 10 Pt is c/o anxiety, agitation, fatigue, restlessness, chills, yawning and stuffy nose. Pt is noted with fine tremors on BUE. COWS score was 10 and CIWA score was 10. pt was given Subutex 2mg SL and Valium 5mg PO as scheduled at 0900 Medication mayra well. Encouraged increase fluid intake for hydration.
[2017-10-15 12:10] VITALS: BP 153/88
--- NOTE | 2017-10-15 12:10 | NUR ---
COWS 8, CIWA 8 Pt is c/o anxiety, agitation, restlessness, yawning and stuffy nose. Pt is noted with fine tremors on BUE. COWS score was 8 and CIWA score was 8. Encouraged increase fluid intake for hydration. Will continue to monitor.
[2017-10-15] MEDS: IBUPROFEN 600 MG TABLET PO PRN ×2 (12:49→21:39)
--- NOTE | 2017-10-15 12:56 | NUR ---
PRN GIVEN Pt c/o tooth ache 09/11. Motrin 600mg PO PRN was given as ordered. Encouraged increase fluid intake. Will continue to monitor.
[2017-10-15 16:00] VITALS: BP 139/76
--- NOTE | 2017-10-15 19:11 | NUR ---
END OF SHIFT Pt is a 37 yr old male, AA&Ox4. Pt was admitted on 10/10/17 for Benzo/Opiate withdrawal and is on 5 day Subutex taper and 5 day Valium taper as ordered. Medication mayra well. Pt has been cooperative with medication regimen and plan of care. He has been attending group therapy that is offered during the day. Pt has been c/o anxiety, agitation, chills and sweats, restlessness, fatigue, stuffy nose, abdominal cramping, muscle aching and tooth ache. Fine tremors are seen on BUE. Pt was given Motrin 600mg PO PRN for tooth pain 09/11. Medication was effective. Last COWS score was 10 and CIWA score was 10 at 1600. Pt was encouraged increase fluid intake for hydration. Safety precautions observed. Endorsed to shift mechanic nurse to continue with care.
--- NOTE | 2017-10-15 19:30 | NUR ---
Start of Shift Endorsement received from day nurse. Pt admitted 10/10/17 for medically managed withdrawal from Benzodiazapines and Opiates. Pt is listed as a full code with NKAs and on a regular diet. Pt is completing day 5 of a 5 day Valium and Subutex taper. Pt presents with flat affect, appears anxious, restless, depressed, with poor eye contact with loose/racing thoughts. Oriented x 4. Last COWS and CIWA reported was 10 and 10 from 1630, improved from previous shifts of 14 each, improvements in anxiety and agitation noted. Full safety measures remain in place with bed locked and in lowest position, siderails up x 2, call negrete within reach and frequent rounding. Will continue to monitor for duration of shift promptly attending to all s/sxs w/d or distress
[2017-10-15 20:00] VITALS: BP 132/79
--- NOTE | 2017-10-15 20:00 | NUR ---
Evening Rounds COWS 8, CIWA 8, aeb anxiety, agitation and restlessness, depression, anhedonia, difficulty concentrating and sleeping, diaphoresis, fatigue, nasal congestion.
--- NOTE | 2017-10-15 21:39 | NUR ---
PRN Med Trazodone 50mg PO for sleep and Motrin 600mg PO for gum/tooth pain given. Will continue to monitor and reassess in 1 hour.
--- NOTE | 2017-10-15 22:39 | NUR ---
PRN Reassessment Trazodone 50mg PO for sleep and Motrin 600mg PO for gum/tooth pain given 1 hour prior. At present pt is reporting reduction in mouth pain, 3/10 (Pt says he's "just gotten used to it"), and some drowsiness. Meds partially effective. Will continue to monitor pt, encouraging to rest, and promptly attend to all s/sx's w/d or distrees.
[2017-10-16] VITALS: BP 138/83
--- NOTE | 2017-10-16 | NUR ---
Midnight Rounds VS's obtained, stable with HR 56, pt asymptomatic. CIWA deferred r/t pt somnalance. Will continue to moniotor and promptly attend to all s/sx's w/d or distress.
[2017-10-16 04:00] VITALS: BP 113/63
--- NOTE | 2017-10-16 04:00 | NUR ---
0400 Rounds VS's obtained, SBP 113, hr 50, SaO2 96%, COWS/CIWA deferred r/t somnalance. Will continue to monitor and attend promptly to all s/sx's w/d or distress.
--- NOTE | 2017-10-16 07:20 | NUR ---
Start of Shift Endorsement received from day nurse. Pt admitted 10/10/17 for medically managed withdrawal from Benzodiazapines and Opiates. Pt is listed as a full code with NKAs and on a regular diet. Pt has completed 5 day Valium and Subutex tapers 10/15/17, d/c planned for 10/17/17. Pt maintains with flat affect , depressed/worried with racing thoughts. W/d manifested by anxiety/restlessness, depression, anhedonia, difficulty concentrating and sleeping, and diaphoresis. Last COWS/CIWA 10/10 at 2000 hours. Sole PRN for shift was Benedryl for sleep. Pt slept for 5 hours, with 1000 mls intake and 3 voids. Full safety measures remain in place with frequent rounding.
--- NOTE | 2017-10-16 07:50 | NUR ---
START OF SHIFT Pt is a 37 yr old male, admitted on 10/10/17 for Benzo/Opiate withdrawal and has completed a 5 day Valium and 5 day Subutex taper as ordered. Received report from film processing shift supervisor. Pt received Motrin PRN and Trazodone PRN during the night. Medication was effective. Pt slept for 5 hrs. Last COWS score was 8 and CIWA score was 8. Pt remains in bed sleeping with respirations even and unlabored. Skin is intact, warm and moist to touch. Pt is on fall and seizure precautions. Call light is within reach. Will continue to monitor.
--- NOTE | 2017-10-16 08:00 | NUR ---
COWS AND CIWA SCORE DEFERRED Pt is currently in bed sleeping with respirations even and unlabored. COWS and CIWA score are being deferred. Will continue to monitor.
[2017-10-16 08:18] VITALS: BP 89/43
[2017-10-16] MEDS: FOLIC ACID 1 MG TABLET PO SCH (09:00)
[2017-10-16] MEDS: MULTIVITAMINS,THERAPEUTIC TABLET PO SCH (09:00)
[2017-10-16] MEDS: THIAMINE HCL 100 MG TABLET PO SCH (09:00)
--- NOTE | 2017-10-16 09:45 | NUR ---
MEDICATION REFUSED Pt refused to take Multivitamin, vit. B1 and folic acid as scheduled at 0900. Pt states, "I just want to sleep". Medication was held. Will continue to monitor.
[2017-10-16 12:00] VITALS: BP 138/82
--- NOTE | 2017-10-16 12:00 | NUR ---
COWS SCORE 6, CIWA SCORE 6 Pt is noted with anxiety m/b difficulty staying stay. Pt is c/o sweats, chills and abdominal cramping. COWS score was 6 and CIWA score was 6. Pt was encouraged to attend group therapy during the day. Will continue to monitor.
[2017-10-16] MEDS: IBUPROFEN 600 MG TABLET PO PRN ×2 (14:41→23:26)
--- NOTE | 2017-10-16 14:42 | NUR ---
PRN GIVEN Pt c/o tooth ache 08/12. Facial grimacing is observed. Motrin 600mg PO PRN was given as ordered. Encouraged increase fluid intake. will continue to monitor.
[2017-10-16] MEDS ORDERED: CLON0.1T14 PO (14:49)
[2017-10-16] MEDS ORDERED: IBUP-1955 PO (14:49)
[2017-10-16] MEDS ORDERED: HYDR-3895 PO (14:49)
[2017-10-16] MEDS ORDERED: TRAZ-213 PO (14:49)
--- NOTE | 2017-10-16 15:42 | NUR ---
PRN RE-ASSESSMENT Motrin PRN was effective. Pt continues to c/o tooth ache but states it is at a tolerable level. Encouraged increase fluid intake. Will continue to monitor
[2017-10-16 16:00] VITALS: BP 138/80
--- NOTE | 2017-10-16 16:44 | NUR ---
Therapist prompted client to attend twice daily group therapy sessions.
[2017-10-16] MEDS ORDERED: TRAZODONE 50 MG TABLET PO PRN (17:15)
[2017-10-16] MEDS ORDERED: TRAZODONE 100 MG TABLET PO PRN (17:30)
--- NOTE | 2017-10-16 18:58 | NUR ---
END OF SHIFT Pt is a 37 yr old male, AA&Ox4. Pt was admitted on 10/10/17 for Benzo/Opiate withdrawal and has completed a 5 day Subutex taper and 5 day Valium taper as ordered. Medication mayra well. Pt has been cooperative with medication regimen and plan of care. He has been observed attending group therapy that is offered during the day. Pt has been c/o anxiety, agitation and sweats, restlessness, fatigue and tooth ache. Skin is intact, warm and moist to touch. Pt was given Motrin 600mg PO PRN for tooth pain 08/12. Medication was effective. Last COWS score was 4 and CIWA score was 5 at 1600. Pt was encouraged increase fluid intake for hydration. Pt is to be discharged tomorrow to [place]. Pt states he is ready to continue with rehabilitation. Safety precautions observed. Endorsed to overnight cashier nurse to continue with care.
[2017-10-16 20:00] VITALS: BP 125/81
--- NOTE | 2017-10-16 20:00 | NUR ---
Start of Shift Note Received a 37 y/o male px, admitted for medically supervised withdrawal from opiates and benzos. Px was also using cocaine. He completed 5 day Valium taper and 5 day Subutex taper. Px tolerated them. Px is to be D/C tomorrow, 10/17/2017. Last reported COWS 4 and CIWA 5 by AM shift nurse. During the rounds at 2000, loyda is awake on in his room sitting on the edge of bed. Px appears anxious and depressed with flat affect. Px is disheveled and unshaven. He stated that his anxiety is 8/10, had chills, stuffy nose, and stomach cramps. He added "I see spots sometimes but these don't bother me. I'll be leaving tomorrow at 6 in the morning and I will fly to [place] at 0930." Unfinished drinks noted on top of the bed side table. Bed on lowest position, side rails up 2x and call light within reach. We'll continue to monitor.
--- NOTE | 2017-10-16 20:00 | NUR ---
COWS 7 and CIWA 13 Px appears anxious and depressed with flat affect. Px is disheveled and unshaven. He stated that his anxiety is 8/10, had chills, stuffy nose, and stomach cramps. He added "I see spots sometimes but these don't bother me. VT= 64.
[2017-10-16 20:41] LABS: BASOPHILS # (AUTO) 0.1 K/uL (0.0-8.0); BASOPHILS % (AUTO) 0.9 % (0.0-2.0); EOSINOPHILS # (AUTO) 0.2 K/uL (0.0-0.7); HEMATOCRIT 40.9 % (36.7-47.1); HEMOGLOBIN 14.2 g/dL (12.5-16.3); LYMPHOCYTES # (AUTO) 2.9 K/uL (20.0-40.0); LYMPHOCYTES % (AUTO) 33.2 % (20.5-51.5); MEAN CORPUSCULAR HEMOGLOBIN 31.8 uug (23.8-33.4); MEAN CORPUSCULAR HGB CONC 35 g/dL (32.5-36.3); MEAN CORPUSCULAR VOLUME 91.6 fL (73.0-96.2); MONOCYTES # (AUTO) 0.6 K/uL (2.0-10.0); MONOCYTES % (AUTO) 6.5 % (0.0-11.0); NEUTROPHILS % (AUTO) 57.4 % (38.5-71.5); PLATELET COUNT (AUTO) 193 K/uL (152-348); RED BLOOD CELL COUNT(AUTO) 4.47 MIL/uL (4.06-5.63); WHITE BLOOD COUNT (AUTO) 8.8 K/uL (3.6-10.2)
[2017-10-16 20:58] LABS: BILIRUBIN,TOTAL 0.5 mg/dL (0.2-1.0); CREATININE 0.9 mg/dL (0.6-1.3); POTASSIUM 4.6 mmol/L (3.5-5.1); TOTAL PROTEIN, SERUM 6.8 g/dL (6.4-8.2)
--- NOTE | 2017-10-16 22:37 | NUR ---
PRN medications Px received Bentyl 20 mg PO for stomach cramps, Clonidine 0.1 mg PO for increased anxiety, and Trazodone 100mg PO for insomnia. We'll continue to monitor.
--- NOTE | 2017-10-16 23:26 | NUR ---
PRN Motrin Px received Motrin 600 mg PO for toothache of 09/11. To reassess after an hour.
--- NOTE | 2017-10-16 23:40 | NUR ---
Reassessment of stomach cramps and anxiety Px stated that his stomach cramps and his anxiety improved after an hour of administration of Bentyl 20 mg PO and Clonidine 0.1 mg PO.
[2017-10-17] VITALS: BP 121/78
--- NOTE | 2017-10-17 | NUR ---
COWS 7 and CIWA 11 Px is still awake but getting ready to sleep. Px still appears anxious. He stated that his anxiety is better now, had chills, stuffy nose, and stomach cramps. Px was given Bentyl 20 mg PO and Clonidine 0.1 mg PO a while ago. He said "I see spots sometimes but these don't bother me. UT= 68.
[2017-10-17 04:00] VITALS: BP 118/77
--- NOTE | 2017-10-17 04:00 | NUR ---
COWS and CIWA deferred COWS and CIWA deferred due to the px is asleep to assess if the px is awake per doctor's order. We'll continue to monitor.
--- NOTE | 2017-10-17 06:18 | NUR ---
D/C note Px is in stable condition. VS are as follows BP= 103/57, IN= 60, RR=14, T= 97.6, O2sat= 98% on RA. Skin is intact. Px denies any suicidal or homicidal ideations. All D/C paper work signed and dated. Fide was D/C from [facility] on 10/17/2017 at 0618. Fide left the building with all his belongings and rx. notified.
== END 2017-10-17 06:18 | disposition other institution (70) | DRG 895 ==
LOC: SRC 14:32
PROVIDERS: ADMIT Family Medicine Addiction Medicine; ATTEND Family Medicine Addiction Medicine
PROC: HZ2ZZZZ Detoxification Services for Substance Abuse Treatment (ICD-10-PCS; principal; 2017-10-10)
PROC: HZ41ZZZ Group Counseling for Substance Abuse Treatment, Behavioral (ICD-10-PCS; 2017-10-11)
DX: F11.23 Opioid dependence with withdrawal (principal); F13.230 Sedative, hypnotic or anxiolytic dependence with withdrawal, uncomplicated; F17.210 Nicotine dependence, cigarettes, uncomplicated; G47.00 Insomnia, unspecified; R74.0 Nonspecific elevation of levels of transaminase and lactic acid dehydrogenase [LDH]; K08.9 Disorder of teeth and supporting structures, unspecified
CPT/HCPCS: 36415; 70030-TC; 80307; 80346; 80353; 80361; 83735; 85025; 86580; 86592; 86705; 86803; 87340; 87806; G0480; Q0163